=== PATIENT | male | born 1995 | race African-American/Black ===

== ENCOUNTER 2020-09-29 22:46 | Emergency (ER) | payer OTHER ==
[~2020-09-29] VITALS: Ht 193 cm; Wt 99.8 kg
[2020-09-29] MEDS ORDERED: NORCO5 PO ×2 (23:48→23:59)
[2020-09-29] MEDS ORDERED: CEPHALEXIN500 MG PO ×2 (23:48→23:59)
[2020-09-30 00:58] VITALS: BP 119/57
== END 2020-09-30 00:53 | disposition home or self-care (01) ==
LOC: ER 22:46
DX: S97.01XA Crushing injury of right ankle, initial encounter (principal); W20.8XXA Other cause of strike by thrown, projected or falling object, initial encounter; Y93.89 Activity, other specified; Y92.89 Other specified places as the place of occurrence of the external cause; Y99.8 Other external cause status

== ENCOUNTER 2020-10-06 21:48 | Emergency (ER) | payer OTHER ==
[~2020-10-06] VITALS: Ht 193 cm; Wt 99.8 kg
[~2020-10-06 21:48] MED LIST: CEPHALEXIN500 MG PO; NORCO5 PO
[2020-10-06] MEDS ORDERED: CEPHALEXIN500 MG PO ×2 (23:06→23:11)
[2020-10-06] MEDS ORDERED: NORCO5 PO (23:06)
[2020-10-07 00:48] VITALS: BP 134/84
== END 2020-10-07 00:50 | disposition home or self-care (01) ==
LOC: ER 21:48
DX: L03.116 Cellulitis of left lower limb (principal)